=== PATIENT | male | born 1970 | race Caucasian/White ===

== ENCOUNTER 2022-01-26 21:46 | Emergency (ER) | payer OTHER ==
[2022-01-26 22:12] LABS: BASOPHIL 0.8 % (0-2); EOSINOPHIL 6.1 % (0-5); HCT 45.1 % (42.0-52.0); HGB 16.9 g/dl (13.2-18.0); LYMPHOCYTE 51.3 % (15-48); MCH 34.9 pg (25.0-31.0); MCHC 37.5 g/dL (32.0-36.0); MCV 93.2 fL (78.0-100.0); MONOCYTE 8.6 % (0-12); MPV 9.2 fL (6.0-9.5); NEUTROPHIL 33.1 % (41-80); NRBC 0; PLT 220 K/uL (150-400); RBC 4.84 M/uL (4.70-6.00); RDW 11.1 % (11.5-14.0); WBC 7.2 K/uL (4.0-10.5)
[2022-01-26 22:42] LABS: ALBUMIN 3.9 g/dL (3.4-5.0); BILIRUBIN - TOTAL 0.3 mg/dL (0.2-1.0); BUN/CREAT RATIO (CALC) 12.9 RATIO; CREATININE 0.93 mg/dL (0.67-1.17); GLOBULIN (CALCULATION) 3.5 g/dL; MAGNESIUM 1.9 mg/dL (1.8-2.4); POTASSIUM 3.5 mmol/L (3.5-5.1); TOTAL PROTEIN 7.4 g/dL (6.4-8.2)
== END 2022-01-27 00:45 | disposition home or self-care (01) ==
LOC: FER 21:46
PROVIDERS: Internal Medicine
DX: I49.3 Ventricular premature depolarization (principal); F17.210 Nicotine dependence, cigarettes, uncomplicated
CPT/HCPCS: 36415; 71045; 80053; 83735; 84439; 84443; 84484; 85025; 85379; 93005; G0480; J3475